=== PATIENT | female | born 1940 | race Caucasian/White ===

== ENCOUNTER 2018-02-24 06:28 | Inpatient (IN) | payer MEDICARE ==
[~2018-02-24] VITALS: Ht 160 cm; Wt 89.9 kg
[~2018-02-24 06:28] MED LIST: ATOR10TA87 PO; GLIP5TAB13 PO; LISI-600 PO; MECL-111 PO; METF500T PO; OXYB5TAB11 PO; SYN0.088T PO
[2018-02-24 07:03] LABS: BASOPHILS % (AUTO) 0.5 % (0-1); EOSINOPHILS # (AUTO) 0.2 X10'3 (0-0.9); EOSINOPHILS % (AUTO) 1.7 % (0-6); HEMATOCRIT 40.3 % (35.0-45.0); HEMOGLOBIN 13.5 g/dl (12.0-16.0); LYMPHOCYTES % (AUTO) 20.9 % (21-51); MEAN CORPUSCULAR HEMOGLOBIN 28.1 PG (27.0-31.0); MEAN CORPUSCULAR HGB CONC 33.6 % (33.0-36.5); MEAN CORPUSCULAR VOLUME 83.6 FL (78-98); MEAN PLATELET VOLUME 8.3 FL (7.4-10.4); MONOCYTES # (AUTO) 0.7 X10'3 (0-0.9); MONOCYTES % (AUTO) 7.2 % (2-12); NEUTROPHILS # (AUTO) 6.5 X10'3 (1.8-7.7); NEUTROPHILS % (AUTO) 69.7 % (42-75); PLATELET COUNT 339 X10'3 (140-440); RED BLOOD COUNT 4.82 X10'6 (4.20-5.60); RED CELL DISTRIBUTION WIDTH 14.8 % (11.5-14.5); WHITE BLOOD COUNT 9.4 X10'3 (4.5-11.0)
[2018-02-24 07:15] LABS: PARTIAL THROMBOPLASTIN TIME 27 SECONDS (22-32)
[2018-02-24 07:40] LABS: ALANINE AMINOTRANSFERASE 16 U/L (12-78); ALBUMIN 3.5 G/DL (3.4-5.0); ALBUMIN/GLOBULIN RATIO 0.9 (1.1-1.5); ALKALINE PHOSPHATASE 57 IU/L (46-116); ANION GAP 14 (8-16); ASPARTATE AMINO TRANSFERASE 23 U/L (10-37); BILIRUBIN,TOTAL 0.3 MG/DL (0.1-1.0); BLOOD UREA NITROGEN 24 MG/DL (7-18); BUN/CREATININE RATIO 19.2 (6.6-38.0); CALCIUM 9.1 MG/DL (8.5-10.1); CHLORIDE 103 MMOL/L (99-107); CREATININE 1.25 MG/DL (0.40-0.90); GLUCOSE 200 MG/DL (70-104); POTASSIUM 3.7 MMOL/L (3.5-5.1); SODIUM 139 MMOL/L (135-145); TOTAL CARBON DIOXIDE 21.8 MMOL/L (24-32); TOTAL PROTEIN 7.2 G/DL (6.4-8.2); eGFR 42 ML/MIN
[2018-02-24 07:48] LABS: MAGNESIUM 1.6 MG/DL (1.5-2.4); PHOSPHORUS 3.2 MG/DL (2.3-4.5)
[2018-02-24] MEDS ORDERED: aspirin 325mg tablet PO ONE (08:10)
[2018-02-24 08:18] LABS: CLARITY,URINE SLIGHTLY CLOUDY (Clear); COLOR,URINE YELLOW (Yellow); GLUCOSE, URINE NEGATIVE (Neg); KETONES,URINE 15 mg/dl (Neg); LEUKOCYTE ESTERASE ,URINE TRACE (Neg); NITRITES, URINE NEGATIVE (Neg); OCCULT BLOOD,URINE NEGATIVE (Neg); PH,URINE 5.5 (4.8-8.0); PROTEIN,URINE 100 mg/dl (Neg); UROBILINOGEN,URINE 0.2 E.U/dL (0.2-1.0)
[2018-02-24] MEDS ORDERED: normal saline 1000ML IV soln IVB ONE (08:20)
[2018-02-24] MEDS: normal saline 1000ml 1,000 ML IV SCH ×2 (08:22→22:40)
[2018-02-24 08:25] LABS: UA COLLECTION TYPE STRAIGHT CATH
[2018-02-24] MEDS ORDERED: acetaminophen 325mg tablet PO PRN ×2 (08:25)
[2018-02-24 08:26] LABS: BACTERIA,URINE 3+ /HPF (Neg); MUCUS STRANDS NONE SEEN /LPF (Neg); RBC,URINE NONE SEEN /HPF (0-2); SQUAMOUS EPITHELIAL CELL,UR NONE SEEN /LPF (FEW); WBC CLUMPS,URINE MODERATE /HPF (NEGATIVE); WBC,URINE TNTC /HPF (0-4)
[2018-02-24] MEDS ORDERED: LEVO75TA PO (08:31)
[2018-02-24] MEDS ORDERED: Metformin (08:33)
[2018-02-24 10:56] LABS: HEMOGLOBIN A1C 6.8 % (4.5-6.2)
[2018-02-24] MEDS ORDERED: LORazepam 2 mg/ml vial IV ONE (11:00)
[2018-02-24 12:20] VITALS: BP 142/54
[2018-02-24] MEDS: CefTRIAXone/D5W-Rocephin 1gm 50 ML IV SCH (12:49)
[2018-02-24] MEDS: oxybutynin 5mg tablet PO SCH ×2 (12:49→20:12)
[2018-02-24] MEDS: metoprolol succinate 25mg (24-HOUR) SR. Tablet PO SCH (12:49)
[2018-02-24 15:00] VITALS: BP 98/49
[2018-02-24] MEDS ORDERED: dextrose ORAL solution 15 GM/59 ML bottle PO PRN ×2 (17:50)
[2018-02-24] MEDS ORDERED: dextrose 50%-water 50ml dispensing syringe IV PRN ×2 (17:50)
[2018-02-24] MEDS ORDERED: MESSAGE TO PHARMACY PO ONE (17:50)
[2018-02-24] MEDS ORDERED: glucagon, human recombinant 1mg kit SUBCUT PRN (17:50)
[2018-02-24 19:00] VITALS: BP 112/59
[2018-02-24] MEDS: insulin Lispro (HumaLOG) vial - multi-dose SQ SCH (19:05)
[2018-02-24] MEDS: glipizide 5mg tablet PO SCH (19:16)
[2018-02-24 19:34] LABS: D-DIMER 1.22 MG/L FEU (0-0.50)
[2018-02-24] MEDS: insulin glargine (Lantus) pen - multi-dose SQ SCH (21:46)
[2018-02-24 23:00] VITALS: BP 104/60
[2018-02-25 03:00] VITALS: BP 107/68
[2018-02-25 06:00] VITALS: BP 113/70
[2018-02-25 06:00] LABS: CHOLESTEROL 155 MG/DL (0-200); HDL CHOLESTEROL 52 MG/DL (35-60); LDL CHOLESTEROL 91 MG/DL (50-100); TRIGLYCERIDES 101 MG/DL (20-135)
[2018-02-25] MEDS ORDERED: metFORMIN 850mg tablet PO SCH (08:00)
[2018-02-25] MEDS: glipizide 5mg tablet PO SCH (08:48)
[2018-02-25] MEDS: metoprolol succinate 25mg (24-HOUR) SR. Tablet PO SCH (08:48)
[2018-02-25] MEDS: levoTHYROXINE 75mcg tablet PO SCH (08:48)
[2018-02-25] MEDS: oxybutynin 5mg tablet PO SCH ×3 (08:49→20:14)
[2018-02-25] MEDS: aspirin 81mg tablet.DR PO SCH (08:49)
[2018-02-25] MEDS: CefTRIAXone/D5W-Rocephin 1gm 50 ML IV SCH (08:49)
[2018-02-25] MEDS: enoxaparin 40mg/0.4ml syringe SQ SCH (08:51)
[2018-02-25] MEDS: insulin Lispro (HumaLOG) vial - multi-dose SQ SCH ×2 (09:46→15:03)
[2018-02-25 11:00] VITALS: BP 117/66
[2018-02-25] MEDS ORDERED: regadenoson 0.4mg/5ml syringe IV ONE (11:35)
[2018-02-25] MEDS ORDERED: metoprolol tartrate 1mg/ml inj IV PRN (11:35)
[2018-02-25] MEDS ORDERED: nitroGLYCERIN 0.4mg SUBLingual tab SL PRN (11:35)
[2018-02-25] MEDS ORDERED: CAFFEINE CITRATE 60 MG/3 ML injection vial IV PRN (11:35)
[2018-02-25] MEDS: normal saline 1000ml 1,000 ML IV SCH (15:06)
[2018-02-25 19:00] VITALS: BP 104/64
[2018-02-25] MEDS: lactobacillus rhamnosus 10,000 MMU CELLS/CAPSULE PO SCH (20:14)
[2018-02-25] MEDS: insulin glargine (Lantus) pen - multi-dose SQ SCH (21:00)
[2018-02-25 23:00] VITALS: BP 102/49
[2018-02-26] VITALS (27 sets, daily range): BP systolic 111–167; BP diastolic 16–95
[2018-02-26 05:26] LABS: BASOPHILS % (AUTO) 0.4 % (0-1); EOSINOPHILS # (AUTO) 0.3 X10'3 (0-0.9); EOSINOPHILS % (AUTO) 3.5 % (0-6); HEMATOCRIT 32.6 % (35.0-45.0); HEMOGLOBIN 10.9 g/dl (12.0-16.0); LYMPHOCYTES # (AUTO) 1.9 X10'3 (1.1-4.8); LYMPHOCYTES % (AUTO) 24.3 % (21-51); MEAN CORPUSCULAR HEMOGLOBIN 28.1 PG (27.0-31.0); MEAN CORPUSCULAR HGB CONC 33.4 % (33.0-36.5); MEAN CORPUSCULAR VOLUME 84.2 FL (78-98); MEAN PLATELET VOLUME 9.2 FL (7.4-10.4); MONOCYTES # (AUTO) 0.6 X10'3 (0-0.9); MONOCYTES % (AUTO) 7.8 % (2-12); PLATELET COUNT 279 X10'3 (140-440); RED BLOOD COUNT 3.88 X10'6 (4.20-5.60); RED CELL DISTRIBUTION WIDTH 14.8 % (11.5-14.5); WHITE BLOOD COUNT 7.8 X10'3 (4.5-11.0)
[2018-02-26 05:37] LABS: ALBUMIN 2.8 G/DL (3.4-5.0); ANION GAP 10 (8-16); BLOOD UREA NITROGEN 23 MG/DL (7-18); BUN/CREATININE RATIO 16.7 (6.6-38.0); CALCIUM 8.2 MG/DL (8.5-10.1); CHLORIDE 111 MMOL/L (99-107); CREATININE 1.38 MG/DL (0.40-0.90); GLUCOSE 188 MG/DL (70-104); POTASSIUM 4.3 MMOL/L (3.5-5.1); SODIUM 144 MMOL/L (135-145); TOTAL CARBON DIOXIDE 22.8 MMOL/L (24-32); eGFR 37 ML/MIN
[2018-02-26] MEDS ORDERED: regadenoson 0.4mg/5ml syringe IV ONE (08:24)
[2018-02-26] MEDS ORDERED: CAFFEINE CITRATE 60 MG/3 ML injection vial IV ONE ×2 (08:24→08:25)
[2018-02-26] MEDS: enoxaparin 40mg/0.4ml syringe SQ SCH (10:02)
[2018-02-26] MEDS: lactobacillus rhamnosus 10,000 MMU CELLS/CAPSULE PO SCH ×2 (10:02→19:24)
[2018-02-26] MEDS: aspirin 81mg tablet.DR PO SCH (10:02)
[2018-02-26] MEDS: metoprolol succinate 25mg (24-HOUR) SR. Tablet PO SCH (10:03)
[2018-02-26] MEDS: CefTRIAXone/D5W-Rocephin 1gm 50 ML IV SCH (10:03)
[2018-02-26] MEDS: oxybutynin 5mg tablet PO SCH ×3 (10:03→22:11)
[2018-02-26] MEDS: normal saline 1000ml 1,000 ML IV SCH ×2 (10:04→17:34)
[2018-02-26] MEDS: levoTHYROXINE 75mcg tablet PO SCH (10:14)
[2018-02-26] MEDS: insulin Lispro (HumaLOG) vial - multi-dose SQ SCH ×2 (13:19→19:24)
[2018-02-26] MEDS ORDERED: midazolam 2 mg/2 ml injection ONE (15:47)
[2018-02-26] MEDS ORDERED: fentaNYL/PF 50MCG/1 ML 2ML syringe ONE (15:47)
[2018-02-26] MEDS ORDERED: iohexol 350MG/ML 100ml bottle IV ONE (15:47)
[2018-02-26] MEDS ORDERED: heparin 1,000unit/ml 10ml vial 10 ML ONE (15:47)
[2018-02-26] MEDS ORDERED: LIDOcaine 1% 30ml preserv. free vial ONE (15:47)
[2018-02-26] MEDS ORDERED: nitroGLYCERIN-Tridil 50MG/D5W 250 ML IV ONE (15:48)
[2018-02-26] MEDS ORDERED: verapamil 2.5 mg/ml inj IV ONE (15:49)
[2018-02-26] MEDS ORDERED: HYDROcodone/acetaminophen 5mg/325mg tablet PO PRN (17:20)
[2018-02-26] MEDS ORDERED: proCHLORperazine 10 MG/2 ml inj IV PRN (17:20)
[2018-02-26] MEDS ORDERED: HYDROcodone/acetaminophen 10/325mg tab PO PRN (17:20)
[2018-02-26] MEDS ORDERED: OXAZEpam 15mg capsule PO PRN (17:20)
[2018-02-26] MEDS ORDERED: ondansetron/PF 4mg/2ml inj IV PRN (17:20)
[2018-02-26] MEDS: insulin glargine (Lantus) pen - multi-dose SQ SCH (22:11)
[2018-02-27 02:24] VITALS: BP 138/74
[2018-02-27 03:00] VITALS: BP 138/74
[2018-02-27 06:00] VITALS: BP 143/71
[2018-02-27] MEDS ORDERED: atorvastatin 20mg tablet PO SCH (08:00)
[2018-02-27] MEDS: lactobacillus rhamnosus 10,000 MMU CELLS/CAPSULE PO SCH (08:55)
[2018-02-27] MEDS: oxybutynin 5mg tablet PO SCH (08:56)
[2018-02-27] MEDS: aspirin 81mg tablet.DR PO SCH (08:56)
[2018-02-27] MEDS: CefTRIAXone/D5W-Rocephin 1gm 50 ML IV SCH (08:56)
[2018-02-27] MEDS: metoprolol succinate 25mg (24-HOUR) SR. Tablet PO SCH (08:57)
[2018-02-27] MEDS: levoTHYROXINE 75mcg tablet PO SCH (08:57)
[2018-02-27] MEDS: enoxaparin 40mg/0.4ml syringe SQ SCH (08:58)
[2018-02-27] MEDS ORDERED: lisinopril 2.5mg tablet PO SCH (09:05)
[2018-02-27] MEDS ORDERED: clopidogrel 75mg tablet PO SCH (09:05)
[2018-02-27] MEDS: insulin Lispro (HumaLOG) vial - multi-dose SQ SCH (09:25)
[2018-02-27 11:00] VITALS: BP 138/81
[2018-02-27] MEDS ORDERED: CEPH500C5 PO (11:17)
[2018-02-27] MEDS ORDERED: METO-395 PO (11:17)
[2018-02-27] MEDS ORDERED: CLOP75TA15 PO (11:17)
[2018-02-27] MEDS ORDERED: LISI2.5T2 PO (11:17)
[2018-02-27] MEDS ORDERED: ASPI81TA52 PO (11:17)
[2018-02-27] MEDS ORDERED: ATOR20TA PO (11:17)
== END 2018-02-27 13:31 | disposition home or self-care (01) | DRG 280 ==
LOC: ER 06:28 → ED HOLD 08:22 → PCU 3S 09:24
PROVIDERS: ADMIT Internal Medicine; ATTEND Family Medicine
PROC: 4A023N7 Measurement of Cardiac Sampling and Pressure, Left Heart, Percutaneous Approach (ICD-10-PCS; principal; 2018-02-26)
PROC: B2111ZZ Fluoroscopy of Multiple Coronary Arteries using Low Osmolar Contrast (ICD-10-PCS; 2018-02-26)
PROC: B2151ZZ Fluoroscopy of Left Heart using Low Osmolar Contrast (ICD-10-PCS; 2018-02-26)
PROC: 4A02XM4 Measurement of Cardiac Total Activity, External Approach (ICD-10-PCS; 2018-02-26)
PROC: 3E033HZ Introduction of Radioactive Substance into Peripheral Vein, Percutaneous Approach (ICD-10-PCS; 2018-02-26)
DX: I21.4 Non-ST elevation (NSTEMI) myocardial infarction (principal); I50.21 Acute systolic (congestive) heart failure; N39.0 Urinary tract infection, site not specified; I51.81 Takotsubo syndrome; E03.9 Hypothyroidism, unspecified; E11.22 Type 2 diabetes mellitus with diabetic chronic kidney disease; E86.0 Dehydration; N18.3 Chronic kidney disease, stage 3 (moderate); B96.1 Klebsiella pneumoniae [K. pneumoniae] as the cause of diseases classified elsewhere; E78.00 Pure hypercholesterolemia, unspecified; Z60.2 Problems related to living alone; Z79.899 Other long term (current) drug therapy; Z79.84 Long term (current) use of oral hypoglycemic drugs; Z80.3 Family history of malignant neoplasm of breast; Z79.82 Long term (current) use of aspirin; Z80.8 Family history of malignant neoplasm of other organs or systems; Z82.49 Family history of ischemic heart disease and other diseases of the circulatory system; Z83.3 Family history of diabetes mellitus
CPT/HCPCS: 36415; 70450; 70544; 70551; 71045; 78451; 80048; 80053; 80061; 81001; 82948; 83036; 83735; 83880; 84100; 84443; 84484; 85025; 85379; 85610; 85730; 87070; 87077; 87088; 87186; 92616; 93005; 93017; 93306; 93458; 93880; 97116; 97162; 97530; 99152; 99153; 99285; A4620; A6257; A9500; C1769; J0696; J1644; J1650; J1815; J2060; J2250; J3010; J3490; J7030; Q9967